=== PATIENT | female | born 1955 | race Caucasian/White ===

== ENCOUNTER 2016-09-28 18:02 | Emergency (ER) | payer OTHER ==
[~2016-09-28] VITALS: Ht 160 cm; Wt 65.8 kg
[2016-09-28] MEDS ORDERED: IV NS 0.9% 1,000 ML BAG IV ONE (20:00)
[2016-09-28 20:31] LABS: BASOPHILS % (AUTO) 0.3 % (0.0-2.0); DIFF TOTAL % 100 %; EOSINOPHILS # (AUTO) 0.1 /CMM (0.0-0.7); EOSINOPHILS % (AUTO) 0.8 % (0.0-6.0); HEMATOCRIT 39 % (33-45); HEMOGLOBIN 13.1 g/dL (11.5-14.8); LYMPHOCYTES # (AUTO) 1.6 /CMM (0.8-4.8); LYMPHOCYTES % (AUTO) 24.5 % (20.0-44.0); MEAN CORPUSCULAR HEMOGLOBIN 33 PG (26.0-33.0); MEAN CORPUSCULAR HGB CONC 34 g/dl (31.0-36.0); MEAN CORPUSCULAR VOLUME 96 fL (82-100); MONOCYTES # (AUTO) 0.3 /CMM (0.1-1.30); MONOCYTES % (AUTO) 5.4 % (2.0-12.0); NEUTROPHILS # (AUTO) 4.4 /CMM (1.8-8.9); PLATELET COUNT (AUTO) 275 /CMM (150-450); RED BLOOD CELL COUNT(AUTO) 4.01 MIL/uL (4.0-5.2); WHITE BLOOD COUNT (AUTO) 6.3 K/uL (4.3-11.0)
[2016-09-28 20:42] LABS: ANION GAP 11 (5-14); CARBON DIOXIDE 30 mmol/L (21-32); CHLORIDE 95 mmol/L (98-107); CREATININE 0.6 mg/dL (0.6-1.3); GFR 101 mL/min (>60); GLUCOSE 95 mg/dL (74-106); POTASSIUM 3.7 mmol/L (3.5-5.1); SODIUM SERUM 133 mmol/L (136-145); UREA NITROGEN, BLOOD 3 mg/dL (7-18)
[2016-09-28 20:47] LABS: ALANINE AMINOTRANSFERASE 23 U/L (12-78); ALBUMIN 4.1 g/dL (3.4-5.0); ASPARTATE AMINOTRANSFERASE 25 U/L (15-37); BILIRUBIN,DIRECT 0.1 mg/dL (0.0-0.2); BILIRUBIN,TOTAL 0.3 mg/dL (0.2-1.0); INDIRECT BILIRUBIN 0.2 mg/dL (0.0-1.1); SALICYLATE 3.6 mg/dL (2.8-20.0); TOTAL PROTEIN, SERUM 7.5 g/dL (6.4-8.2)
[2016-09-28] MEDS ORDERED: IV NS 0.9% 1,000 ML ONE (20:47)
[2016-09-28] MEDS ORDERED: IV SET PRIMARY 1 EA INFUS.SET MC ONE (20:47)
[2016-09-28 20:50] LABS: TROPONIN I < 0.017 ng/mL (0.00-0.056)
[2016-09-28 20:53] LABS: INR 1.05 (0.87-1.13); PROTHROMBIN TIME 11.4 SECS (9.5-12.7)
[2016-09-28] MEDS ORDERED: ACETAMINOPHEN ES 500 MG TABLET PO ONE (21:00)
[2016-09-28] MEDS ORDERED: LEVETIRACETAM (250 MG) 250 MG TABLET PO ONE ×2 (21:00→21:16)
[2016-09-28 21:06] LABS: ACETAMINOPHEN < 10 ug/ml (10-30)
[2016-09-28] MEDS ORDERED: ACETAMINOPHEN ES 500 MG TABLET ONE (21:16)
[2016-09-28 21:28] LABS: KETONES,URINE NEGATIVE (NEGATIVE); LEUKOCYTE ESTERASE ,URINE NEGATIVE (NEGATIVE)
[2016-09-28 21:30] LABS: ADD UA MICROSCOPIC YES
[2016-09-28 21:32] LABS: ADD URINE CULTURE NO; WBC,URINE 0-2 /HPF (0-3)
[2016-09-28 21:48] LABS: CANNABINOID, URINE NEGATIVE (NEGATIVE); PHENCYCLIDINE SCREEN,URINE NEGATIVE (NEGATIVE)
[2016-09-29 00:19] VITALS: BP 126/76
== END 2016-09-29 00:20 | disposition home or self-care (01) ==
LOC: ER 18:03
DX: R56.9 Unspecified convulsions (principal); E87.1 Hypo-osmolality and hyponatremia; M54.2 Cervicalgia
CPT/HCPCS: 36415; 70450; 71010; 72040; 80048; 80076; 80305; 81001; 82962 ×2; 84443; 84484; 85025; 85730; 87086; 93005; 96360; 99285; A4606 ×2; G0480; G0481; G0482; J7030 ×2; Z7610 ×2; 81000-TC; G6038-TC; G6039-TC; G6040-TC

== ENCOUNTER 2019-10-16 19:52 | Emergency (ER) | payer SELFPAY ==
[~2019-10-16] VITALS: Ht 167.6 cm; Wt 60.3 kg
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
[2019-10-16] MEDS ORDERED: TDAP [DIPH/PERTUSSIS/TET] 0.5 ML VIAL IM ONE ×2 (20:29→20:30)
--- NOTE | 2019-10-16 20:30 | NUR ---
PT IS PULLING OFF BANDAGES AND INTERFERING WITH WOUND CARE. DR SANTACRUZ IS AT THE BEDSIDE. PT IS PUSHING THE DR'S HANDS AWAY WHILE HE IS TRYING TO STAPLE THE WOUND CLOSED.
[2019-10-16] MEDS ORDERED: MIDAZOLAM HCL 2 MG/2ML VIAL ONE (20:35)
[2019-10-16 20:54] LABS: BASOPHILS # (AUTO) 0.1 /CMM (0.0-0.2); BASOPHILS % (AUTO) 0.8 % (0.0-2.0); EOSINOPHILS % (AUTO) 0.9 % (0.0-6.0); HEMATOCRIT 39 % (33-45); HEMOGLOBIN 12.8 g/dL (11.5-14.8); LYMPHOCYTES # (AUTO) 2.8 /CMM (0.8-4.8); LYMPHOCYTES % (AUTO) 34.4 % (20.0-44.0); MEAN CORPUSCULAR HGB CONC 33 g/dl (31.0-36.0); MEAN CORPUSCULAR VOLUME 99 fL (82-100); MONOCYTES # (AUTO) 0.4 /CMM (0.1-1.30); MONOCYTES % (AUTO) 5.2 % (2.0-12.0); NEUTROPHILS # (AUTO) 4.7 /CMM (1.8-8.9); NEUTROPHILS % (AUTO) 58.7 % (43.0-81.0); PLATELET COUNT (AUTO) 282 /CMM (150-450)
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
--- NOTE | 2019-10-16 20:58 | NUR ---
PT LEFT FOR CT VIA GURNEY.
[2019-10-16] MEDS ORDERED: MIDAZOLAM HCL 2 MG/2ML VIAL IV ONE (21:00)
[2019-10-16 21:08] LABS: BILIRUBIN,DIRECT 0.1 mg/dL (0.0-0.2); BILIRUBIN,TOTAL 0.2 mg/dL (0.2-1.0); CALCIUM, SERUM 8.7 mg/dL (8.5-10.1); CREATININE 0.7 mg/dL (0.6-1.3); POTASSIUM 3.1 mmol/L (3.5-5.1); TOTAL PROTEIN, SERUM 7.7 g/dL (6.4-8.2)
--- NOTE | 2019-10-16 21:15 | NUR ---
PT RETURNED FROM CT. PT REC'D WARM BLANKETS AND IS ON THE MONITOR/CONTINUOUS PULSE OX.
--- NOTE | 2019-10-16 22:25 | NUR ---
DR WARD IS AT THE BEDSIDE. PT AMBULATED WITH A STEADY GAIT DOWN THE HALLWAY AND BACK. IV removed. Catheter intact and site benign. Pressure and 4x4 applied to site. No bleeding noted. Patient discharged to home in stable condition. Written and verbal after care instructions given. Patient verbalizes understanding of instruction. PT TO TAKE AN UBER HOME. PT IS WAITING AT THE [facility] FOR [facility]. VSS
[2019-10-16 22:28] VITALS: BP 124/87
== END 2019-10-16 22:28 | disposition home or self-care (01) ==
LOC: ER 19:52
DX: S01.01XA Laceration without foreign body of scalp, initial encounter (principal); F10.129 Alcohol abuse with intoxication, unspecified; G89.29 Other chronic pain; G40.909 Epilepsy, unspecified, not intractable, without status epilepticus; Z88.5 Allergy status to narcotic agent; W18.39XA Other fall on same level, initial encounter; Y93.89 Activity, other specified; Y92.89 Other specified places as the place of occurrence of the external cause; Y99.8 Other external cause status; Y90.8 Blood alcohol level of 240 mg/100 ml or more
CPT/HCPCS: 12002; 36415; 70450; 80048; 80076; 80307; 85025; 90471; 90715; 96374; 99284; A6403; J2250; G0480